=== PATIENT | female | born 1945 | race Caucasian/White ===

== ENCOUNTER 2018-02-19 06:39 | Inpatient (IN) ==
[2018-02-19] MEDS ORDERED: CeFAZolin Syr 2,000MG/20 ML 2,000 MG/20 ML SYRINGE IVPB ONE (07:03)
[2018-02-19] MEDS ORDERED: Albuterol 2.5 MG/3 ML NEBULIZER IH ONE (07:03)
[2018-02-19] MEDS ORDERED: Ringers Solution, Lactated 1,000 ML IVC SCH (07:15)
--- NOTE | 2018-02-19 07:31 | Anesthesia Evaluation PreOp ---
Date of Encounter: 02/19/18 Time of Encounter: 07:28 - Past History Planned Operation: Left Lower Extremity Femoral/Tibial Endarterectomy Cardiac History: [place] (2010), HTN, Hyperlipidemia (y7), Cardiac Stent (stent x 1 in 2009), Other (H/O PE) Pulmonary History: Former smoker (quit 20 years), Snore [employer] SPECIALIST History: Denies Any Significant HX Other Medical History: GERD Anesthesia History: No Prior Anesthetic Complications, Past Anesthesia Alcohol Use: occasionally Drug use: none Medications and Allergies Acetaminophen [Tylenol] 1,000 mg PO Q6HR PRN #90 tablet 02/11/18 [Rx] Aspirin [Lo-Dose Aspirin EC] 81 mg PO DAILY 02/11/18 [History] Biotin 5,000 mcg PO DAILY 02/11/18 [History] Gemfibrozil [Lopid] 600 mg PO BID 02/11/18 [History] Losartan Potassium [Cozaar] 100 mg PO DAILY 02/11/18 [History] [place]-3/Dha/Epa/Fish Oil [Fish Oil 500 mg Softgel] 1 each PO TID 02/11/18 [ History] Tobramycin/Dexamethasone [Tobradex Eye Ointment] 3.5 gm OP TID 02/11/18 [History ] Trazodone HCl 100 mg PO DAILY 02/11/18 [History] 3 Allergy/AdvReac Type Severity Reaction Status Date / Time Sulfa (Sulfonamide Allergy Nausea Verified 07/23/17 09:04 Antibiotics) [id number]-Gdv Reductase AdvReac Muscle Pain Verified 02/11/18 10:07 Inhibitor [Statins] - Meds/Allergy Pre-op Review Medications Reviewed: Yes Allergies Reviewed: Yes Beta Blockers on Current Med List: No Anesthesia Results - Labs Laboratory Tests 08/09/15 02/05/18 02/05/18 13:08 10:09 10:09 WBC 5.0 Hgb 11.7 Hct 34.5 L Plt Count 284 PT 12.0 INR 1.1 APTT 36.4 H Sodium Potassium BUN POC Creatinine 0.70 02/05/18 10:09 WBC Hgb Hct Plt Count PT INR APTT Sodium 138 Potassium 4.4 BUN 20 POC Creatinine - Imaging EKG: report reviewed (02/05/2018 SINUS RHYTHM WITH SINUS ARRHYTHMIA) Additional studies: 07/23/2017 Stress Impression: Pharmacologic stress ECG is non-diagnostic for ischemia due to submaximal HR and baseline ST-T changes. Gated EF > 70%. Perfusion imaging was negative for ischemia or infarct. Anesthesia Exam O2 Sat Height 1.68 m Height 1.68 m Height 1.68 m Weight 79.832 kg Weight 79.832 kg Weight 79.832 kg O2 Sat by Pulse Oximetry 98 Vital Signs Temp Pulse Resp BP Pulse Ox 98.0 F 58 18 158/72 98 02/19/18 07:02 02/19/18 07:02 02/19/18 07:02 02/19/18 07:02 02/19/18 07:02 Height: 5'6'' Weight: 176 lbs NPO (# of Hours): 8 Pain Scale: 0 Pain Scale Used: Numeric (1 - 10) - HEENT Pupil (Motor): EOMI Mallampati: II Teeth: Normal Oral Opening: Greater than 3 - [employer]AL RESEARCH SPECIALIST LOC: Oriented [employer]EARCH SPECIALIST Motor: Normal RUE, Normal LUE, Normal RLE, Normal LLE, Normal Face [employer] SPECIALIST Sensory: Normal: RUE, LUE, RLE, LLE, Face - Cardiac Rhythm: Regular Murmur: None - Pulmonary Breath Sounds: bilateral Clear Respiratory Effort: Symmetrical Anesthesia Assess/Plan ASA Score: 3 Modified Moira Scale for Level of Consciousness: Cooperative, oriented, and tranquil Anesthetic Plan: General Monitoring Plan: Standard Monitors Recovery Plan: PACU
--- NOTE | 2018-02-19 07:32 | History & Physical Report ---
Date of Encounter: 02/19/18 Time of Encounter: 07:30 24 Hour HP Update - Instructions Instructions: If the History and Physical is less than 30 days old and was completed prior to A.M. admission and or procedure and has NOT been updated on calendar day of procedure please complete this update prior to performing procedure. - Update Patient reports changes in Medical Condition: No Changes in examination, assessment, or condition: No Changes in Medication: No Preop tests/diagnostics Reviewed: Yes Surgery Remains Indicated: Yes Consent for Planned Operative Procedure(s) Verified: Yes - Pre-Operative Checklist Preoperative Checklist Indicated: Yes Prophylactic Antibiotic Ordered: Yes (vancomycin due to MRSA risk) Home Medications Include Beta Willi: No Beta Willi Taken Today (Day of Surgery): No Beta Willi Taken Yesterday (Day Prior to Surgery): No Is VTE Prophylaxis Indicated?: Yes
[2018-02-19] MEDS ORDERED: *HR* Midazolam HCl 2 MG/2 ML VIAL ONE (07:59)
[2018-02-19] MEDS ORDERED: *HR* FentaNYL (PF) 100 MCG/2 ML VIAL ONE ×2 (07:59→11:05)
[2018-02-19] MEDS ORDERED: Neostigmine Methylsulfate 3 MG/3 ML SYRINGE ONE (07:59)
[2018-02-19] MEDS ORDERED: *HR* Rocuronium Bromide 50 MG/5 ML VIAL ONE (07:59)
[2018-02-19] MEDS ORDERED: Dexamethasone 4 MG/ML VIAL ONE ×2 (07:59→08:00)
[2018-02-19] MEDS ORDERED: *HR* Propofol 200 MG/20 ML VIAL IVP ONE (07:59)
[2018-02-19] MEDS ORDERED: Ondansetron 4 MG/2 ML VIAL ONE (07:59)
[2018-02-19] MEDS ORDERED: Lidocaine -MPF 4% 5 ML AMPUL ONE (07:59)
[2018-02-19] MEDS ORDERED: Lidocaine -MPF 2% 2 ML VIAL ONE (08:00)
[2018-02-19] MEDS ORDERED: Vancomycin 1,000 MG, Sodium Chloride IRRigation 1,000 ML IR ONE (08:50)
[2018-02-19] MEDS ORDERED: Heparin 1,000 UNITS/500 mL 1,000 ML ONE (08:52)
[2018-02-19] MEDS ORDERED: *HR* PHENYLEPHRINE 1,000 MCG/10 ML SYRINGE IVP ONE ×4 (09:15→12:25)
[2018-02-19] MEDS ORDERED: *HR* Promethazine 25 MG/ML VIAL IVP PRN (09:18)
[2018-02-19] MEDS ORDERED: *HR* Meperidine 25 MG/ML SYRINGE IVP PRN (09:18)
[2018-02-19] MEDS ORDERED: Ondansetron 4 MG/2 ML VIAL IVP PRN ×2 (09:18→14:49)
[2018-02-19] MEDS ORDERED: *HR* OxyCODONE Immed Rel 5 MG TABLET PO PRN ×2 (09:18→14:49)
[2018-02-19] MEDS ORDERED: *HR* HYDROmorphone (PF) 1 MG/ML SYRINGE IVP PRN (09:18)
[2018-02-19] MEDS ORDERED: *HR* Labetalol 20 MG/4 ML SYRINGE IVP PRN ×2 (09:18→14:49)
[2018-02-19] MEDS ORDERED: Naloxone 0.4 MG/ML INJ IVP PRN ×2 (09:18→14:49)
[2018-02-19] MEDS ORDERED: Isovue-300 50 ML VIAL IVP ONE ×2 (09:46→11:50)
[2018-02-19] MEDS ORDERED: Heparin 1,000 UNITS/500 mL 500 ML ONE (09:46)
--- NOTE | 2018-02-19 13:21 | Operative Note ---
Date of procedure: 02/19/18 Pre-op diagnosis: Peripheral vascular disease with disabling claudication Post-op diagnosis: same Procedure: 1. Bilateral lower extremity anterior. 2. Right superficial femoral artery 5 x 27 mm and 6 x 37 mm stent placement with post dilatation using 6 mm balloon. 3. Left superficial femoral artery 6 x 37 mm stent placement 4. Left iliofemoral and deep femoral artery endarterectomy with bovine pericardial patch angioplasty. 5. Left anterior tibial and tibial peroneal trunk artery endarterectomy. Complications: None Anesthesia: GETA Surgeon: Vinay Naqvi Was there an printing assistant present: No Estimated blood loss (cc): 50 Specimen: Left lower extremity plaque Condition: stable Disposition: PACU Procedure in Detail: Indications: The patient is a 72-year-old female with a history of coronary artery disease, hypertension, hyperlipidemia and peripheral vascular disease with disabling claudication. He presented underwent bilateral superficial femoral artery stents. Patient presented to clinic with disabling bilateral lower extremity claudication. She underwent angiography which revealed recurrent stenosis of her right superficial femoral artery, left common femoral and deep femoral artery stenosis, left superficial femoral artery stenosis and left tibial stenosis. Revascularization to reduce her symptoms was recommended. Procedure: The patient was identified in the prep and very. The risks, benefits and alternatives were discussed and all questions were answered. The patient was then taken to the operating room and placed in the supine position on the operating table. After the induction of general endotracheal anesthesia was cleaned and draped in normal sterile fashion. An oblique incision was made sharply over the left groin. Hemostasis was obtained via electrocautery. Through a process of blunt, sharp and electrocautery dissection the external iliac artery and common, deep and superficial femoral arteries were dissected circumferentially and surrounded with Vesseloops. A longitudinal incision was then made over the left calf sharply and hemostasis was obtained with electrocautery. Through a process of blunt, sharp and electrocautery dissection the left below-knee popliteal anterior tibial and tibial peroneal trunk arteries were dissected circumferentially internal vessels. Dissection of the tibial vessels required ligation and division of the anterior tibial vein. The vein was dissected and then ligated with 2-0 silk suture and then divided. The patient then received 5000 units of heparin intravenously. Additional heparin was given throughout the case to maintain adequate anticoagulation. After waiting adequate time for the heparin to circulate, the left iliac and femoral vessels were occluded by applying tension to the Vesseloops. A longitudinal arteriotomy was made in the common femoral artery proximally was extended distally as well. Extensive nearly occlusive calcified plaque was noted within the lumen. Using a dental freer an iliofemoral and deep femoral endarterectomy was performed. The plaque was completely excised from the external iliac, common femoral and origin of the deep femoral artery. The specimen was then sent to pathology. Release of the Vesseloops revealed significant retrograde antegrade flow. A 6-[place] sheath was advanced over wire into the aorta via the left femoral arteriotomy. A guiding catheter was used to advance the wire into the right superficial femoral artery and then into the popliteal artery through the stenosis. The short 6-[place] sheath was exchanged for a long 6-[place] sheath. The sheath was flushed with heparinized saline. A right lower extremity angiogram was performed. This revealed 2 segmental stenotic segments within the right superficial femoral artery stents. Predilation with a 5 x 100 mm balloon was then performed. The balloon was removed from the wire and a 5 x 27 mm stent was placed across the distal left superficial femoral artery stenosis. The stent was deployed. The balloon was removed and a 6 x 37 mm stent was then advanced over the more proximal lesion. The stent was deployed. Postdilatation of the 5 x 27 mm stent was then performed with a 6 mm balloon. A completion angiogram revealed no residual stenosis in the right lower extremity. The wire and sheath were removed. A short 6-[place] sheath and placed an antegrade fashion into the left superficial femoral artery a guiding catheter was used to advance the wire across the stenotic segment with of the left superficial femoral artery. An antegrade was then performed revealing a significant stenosis in the left distal superficial femoral artery. A 637 mm stent was then selected. It was advanced over the wire to cross the lesion. The stent was then deployed in the usual fashion. A completion angiogram revealed no hemodynamically significant residual stenosis in the left superficial femoral artery. The lumen was flushed with heparinized saline. The wire and sheath were removed. A bovine pericardial patch was cut to fit the arteriotomy defect in the femoral artery. The patch was sutured in place with running 6-0 Prolene. Bleeding the patch each vessel was flushed. The vessel was then reoccluded. Heparinized saline was infused into the lumen. The arteriotomy patch was completed. Flow was then restored in the femoral vessels. Thrombin and Gelfoam were used to aid in hemostasis. Attention was then turned to the tibial vessels. Tension was applied to the Vesseloops on the popliteal anterior tibial and tibial-peroneal trunk vessels. A transverse arteriotomy was made directly over the trifurcation. Using a dental freer heavily calcified nearly occlusive plaque was excised from the anterior tibial and tibioperoneal trunk vessels. The specimen was sent to pathology. Endpoints were inspected and no elevated flaps were noted. The lumen was flushed with heparinized saline. The arteriotomy was reapproximated with a running 6-0 Prolene in a horizontal fashion. Prior to completing the closure the vessels were flushed and heparinized saline was infused into the lumen. The vessels were reoccluded and the repair was completed. Flow was then restored. Polyphasic signals were noted in the left tibial vessels. In palpable pulse was noted in the left posterior tibial and anterior tibial artery. The wounds were irrigated with antibiotic containing saline. Meticulouswas obtained throughout the wounds with electrocautery. Platelet rich and platelet poor plasma were infused into the wounds. The wounds were reapproximated with layers of 20 and 3-0 Vicryl suture. Skin was reapproximated with 3-0 Monocryl. 0.5% Marcaine anesthetic was infused along the incisions. Sterile dressings were applied and the patient was extubated and taken to the recovery room in stable condition.
--- NOTE | 2018-02-19 13:29 | Discharge Summary ---
Orders not resulted at time of discharge: Pending orders 02/13/18 12:00 Red Blood Cells [BBK] Routine 02/19/18 13:12 Surgical Pathology [PTH] Routine Date of Encounter: 02/19/18 - Discharge Diagnosis (1) Atherosclerosis of [place] arteries of extremities with intermittent claudication, bilateral legs Priority: Primary Status: Chronic (2) Mixed hyperlipidemia Priority: Secondary Status: Chronic (3) Essential hypertension Priority: Secondary Status: Chronic (4) Coronary artery disease Priority: Secondary Status: Chronic Qualifiers: Coronary Disease-Associated Artery/Lesion type: [place] artery [place] vs. transplanted heart: [place] heart Associated angina: without angina Qualified Code(s): I25.10 - Atherosclerotic heart disease of [place] coronary artery without angina pectoris - Hospital Course Hospital course: Ms. Pisano is a 72 year old female - Time Spent with Patient Total time spent providing and/or coordinating discharge services: - Discharge Medications Home Medications: Aspirin [Lo-Dose Aspirin EC] 81 mg PO HS 02/11/18 [History] Biotin 5,000 mcg PO DAILY 02/11/18 [History] Gemfibrozil [Lopid] 600 mg PO BID 02/11/18 [History] Losartan Potassium [Cozaar] 100 mg PO DAILY 02/11/18 [History] [place]-3/Dha/Epa/Fish Oil [Fish Oil 500 mg Softgel] 1 cap PO BID 02/11/18 [ History] Trazodone HCl 100 mg PO HS 02/11/18 [History] Cetirizine HCl [Zyrtec] 10 mg PO DAILY 02/19/18 [History] Clopidogrel [Plavix] 75 mg PO DAILY #30 tablet 02/19/18 [Rx] OxyCODONE/APAP 5/325 [Percocet 5/325 MG] 1 each PO Q6HR PRN 7 Days #25 tablet [Rx] Vitamin E 1,000 unit PO DAILY 02/19/18 [History] Allergies/Adverse Reactions: 3 Allergy/AdvReac Type Severity Reaction Status Date / Time Myevawz-Fhy-Miq Reductase AdvReac Muscle Pain Verified 02/19/18 07:33 Inhibitor [Statins] Sulfa (Sulfonamide AdvReac Nausea Verified 02/19/18 07:33 Antibiotics) Primary care physician: Clint Murphy DO Procedure(s) Performed: 1. Bilateral lower extremity angiogram. 2. Right superficial femoral artery 5 x 27 mm and 6 x 37 mm stent placement with post dilatation using 6 mm balloon. 3. Left superficial femoral artery 6 x 37 mm stent placement 4. Left iliofemoral and deep femoral artery endarterectomy with bovine pericardial patch angioplasty. 5. Left anterior tibial and tibial peroneal trunk artery endarterectomy. Discharging clinician: Vinay Naqvi - Patient Status Disposition: Home, Self-Care Condition: Good Functional capacity at discharge: independent ambulation Overall status at discharge: patient is back to baseline - Discharge Instructions Follow Up With: Clint Murphy DO [Primary Care Provider] - 02/25/18 9:30 am Vinay Naqvi MD [Partnered Physician] - 03/30/18 1:20 pm Additional Instructions: May remove bandages and shower on 02/21/2018. Wash wounds gently and pat to dry. Applied dry gauze to wounds daily for 7 days. No tub baths or swimming until 03/08/2018. Call Dr. Naqvi at [phone] with questions or concerns. - Diet and Activity Activity: increase activity as tolerated Diet: advance to your usual diet, low fat, low cholesterol
--- NOTE | 2018-02-19 13:37 | Anesthesia Evaluation Post Op ---
Date of Encounter: 02/19/18 Time of Encounter: 13:36 - Vital Signs Vital Signs: Vital Signs/O2 Sat, Most Current Temp Pulse Resp BP Pulse Ox 98.0 F 58 18 158/72 98 02/19/18 07:02 02/19/18 07:02 02/19/18 07:02 02/19/18 07:02 02/19/18 07:02 - Lungs Lungs: Clear Ascult./Percussion - Airway Airway: Non-obstructed - Cardiovascular Regular Rate - Mental Status Mental Status: Asleep with brisk response to light stimulation - Pain Pain Scale: 2 Pain Scale used: Numeric (1 - 10) - Nausea Vomiting Nausea Vomiting: Not Present - Hydration Hydration: Ice chips, Gautam catheter - Discharge PostOp Status: Transfer Patient to floor
[2018-02-19] MEDS ORDERED: 0.9 % Sodium Chloride 1,000 ML IVC SCH (14:49)
[2018-02-19] MEDS ORDERED: OXYCODONE Oral CONC 10 MG/0.5 ML ORAL.SYG SL PRN ×2 (14:49)
[2018-02-19] MEDS ORDERED: *HR* HYDROcodone/Acet 5/325 mg TABLET PO PRN (14:49)
[2018-02-19] MEDS ORDERED: Acetaminophen 325 MG TABLET PO PRN (14:49)
[2018-02-19] MEDS ORDERED: Lacri-Lube 3.5 GM TUBE BOTH EYES SCH (14:57)
[2018-02-19] MEDS: *HR* Metoprolol 5 MG/5 ML VIAL IVP SCH ×2 (18:29→23:18)
[2018-02-19] MEDS: Artificial Tears SOLN 15 ML BOTTLE LEFT EYE SCH ×2 (18:29→20:03)
[2018-02-19] MEDS ORDERED: Vancomycin 0 MG in D5% in Water 250 ML IVPB ONE (20:00)
[2018-02-19] MEDS ORDERED: traZODone 50 MG TABLET PO SCH (21:00)
[2018-02-19] MEDS ORDERED: Aspirin Enteric Coated 81 MG Tablet PO SCH (21:00)
[2018-02-19] MEDS ORDERED: NON-FORMULARY MEDICATION 1 EACH EACH (Omega-3/Dha/Epa/Fish Oil [Fish Oil 500 Mg Softgel] 1 PO SCH (21:00)
[2018-02-20] MEDS: *HR* Metoprolol 5 MG/5 ML VIAL IVP SCH ×2 (05:36→12:21)
[2018-02-20] MEDS ORDERED: *HR* Heparin 5,000 UNIT/ML VIAL SQ SCH ×2 (06:00)
[2018-02-20 06:19] LABS: Basophils % 0.1 %; Hematocrit 32.6 % (35.3-44.9); Hemoglobin 11.3 g/dL (11.5-15.4); Immature Granulocytes % 0.5 % (0-4); Lymphocytes % 11.8 %; Mean Corpuscular HGB Conc 34.7 g/dL (31.6-35.5); Mean Corpuscular Hemoglobin 29.7 pg (28.0-33.3); Mean Corpuscular Volume 85.6 fL (83.0-100.0); Mean Platelet Volume 10.5 fL (9.4-12.4); Monocytes # 0.8 K/mcL (0.0-1.3); Monocytes % 10.2 %; Neutrophils # 6.4 K/mcL (1.6-8.9); Platelet Count 240 K/mcL (140-400); Red Blood Count 3.81 M/mcL (3.82-4.97); Segmented Neutrophils % 77.4 %
[2018-02-20 06:36] LABS: BUN/Creatinine Ratio 20 (6-26); Blood Urea Nitrogen 13 mg/dL (8-23); Calcium 8.8 mg/dL (8.6-10.3); Carbon Dioxide 25 mEq/L (23-29); Chloride 107 mEq/L (98-107); Glucose 102 mg/dL (70-105); Osmolality,Calculated 288 (280-300); Potassium 4.1 mEq/L (3.5-5.1); Sodium 139 mEq/L (136-145); eGFR For African Americans > 60 (> 60); eGFR For Non-African Americans > 60 (> 60)
[2018-02-20] MEDS: Artificial Tears SOLN 15 ML BOTTLE LEFT EYE SCH ×2 (08:05→12:21)
[2018-02-20] MEDS ORDERED: Loratadine 10 MG TABLET PO SCH (09:00)
[2018-02-20] MEDS ORDERED: BIOTIN 5000 MCG PO SCH (09:00)
[2018-02-20 11:22] VITALS: BP 149/66
--- NOTE | 2018-02-20 11:56 | Vascular/[facility] Progress Note ---
Date of Encounter: 02/20/18 Time of Encounter: 08:00 - Subjective Interval history: POD#1 s/p bilateral SFA stent placement, left femoral and tibial endarterectomy. Doing well. Complaining of mild incisional discomfort left groin. Tolerated breakfast. Plans to walk later in the AM. Vital Signs, Last 4 Hours Temp Pulse Resp BP Pulse Ox 02/20/18 11:17 97.9 F 56 19 149/66 98 - Physical Examination Cardiac: Present: Reg Rate and Rhythm Lungs: Present: Normal Breath Sounds Vascular: Present: Pulse, normal (Palpable DP, PT pulses bilaterally. ) Skin: Present: Wound/ulcer(s) (Wounds intact with dressing in place. No hematoma. no signs or symptoms of infection) - VTE Documentation of Mechanical Device: Intermittent pneumatic compression device Results 02/20/18 05:31 02/20/18 05:31 Lab Results, Last 24 hours 02/20/18 02/20/18 05:31 05:31 WBC 8.3 Hgb 11.3 L Hct 32.6 L Plt Count 240 Sodium 139 Potassium 4.1 Chloride 107 Carbon Dioxide 25 BUN 13 Creatinine 0.65 Glucose 102 Calcium 8.8 Consult Discharge Plan - Plan Instructions: Remote Superficial Femoral Artery Endarterectomy (DC) Additional Instructions: May remove bandages and shower on 02/21/2018. Wash wounds gently and pat to dry. Applied dry gauze to wounds daily for 7 days. No tub baths or swimming until 03/08/2018. Call Dr. Naqvi at [phone] with questions or concerns. Referrals: Clint Murphy DO [Primary Care Provider] - 02/25/18 9:30 am Vinay Naqvi MD [Partnered Physician] - 03/30/18 1:20 pm
== END 2018-02-20 13:25 | disposition home or self-care (01) | DRG 254 ==
LOC: SAMDAY 06:39 → 2NNU 14:27
PROVIDERS: ADMIT Surgery; ATTEND Surgery

== ENCOUNTER 2020-06-26 07:17 | Inpatient (IN) ==
[2020-06-26] MEDS ORDERED: Insulin Human Regular 100 UNIT in 0.9 % Sodium Chloride 100 ML IV PRN (07:45)
[2020-06-26] MEDS ORDERED: Dextrose 50 % in Water (Vial) 30 ML, Sodium Bicarbonate 20 MEQ, Potassium Chloride 15 M... TH ONE (07:45)
[2020-06-26] MEDS ORDERED: Norepinephrine 4 MG in 0.9 % Sodium Chloride 250 ML IVC PRN (07:45)
[2020-06-26] MEDS ORDERED: Heparin 1,000 UNITS/500 mL 500 ML ONE (07:51)
[2020-06-26] MEDS ORDERED: ISOVUE-370 200 ML INFUS..BTL ONE (07:51)
[2020-06-26] MEDS ORDERED: Nitroglycerin 1,000 MCG/10 ML VIAL IV ONE (07:51)
[2020-06-26] MEDS ORDERED: *HR* Heparin 10,000 UNIT/10 ML VIAL ONE (07:51)
[2020-06-26] MEDS ORDERED: 0.9 % Sodium Chloride 1,000 ML IVC SCH (08:00)
[2020-06-26] MEDS ORDERED: *HR* Midazolam HCl 2 MG/2 ML VIAL ONE (09:08)
[2020-06-26] MEDS ORDERED: *HR* FentaNYL (PF) 100 MCG/2 ML VIAL ONE (09:08)
[2020-06-26] MEDS ORDERED: Metoprolol XL (24 HR) Succ 25 MG TAB.ER.24H PO ONE (17:00)
[2020-06-26 17:06] LABS: Basophils % 0.7 %; Eosinophils # 0.1 K/mcL (0.0-0.6); Eosinophils % 1.4 %; Estimated Average Glucose 94 mg/dl; Hematocrit 34.1 % (35.3-44.9); Hemoglobin 10.7 g/dL (11.5-15.4); Immature Granulocytes % 0.5 % (0-4); Lymphocytes # 1.1 K/mcL (0.6-4.6); Lymphocytes % 26.5 %; Mean Corpuscular HGB Conc 31.4 g/dL (31.6-35.5); Mean Corpuscular Hemoglobin 25.4 pg (28.0-33.3); Mean Platelet Volume 10.4 fL (9.4-12.4); Monocytes # 0.6 K/mcL (0.0-1.3); Monocytes % 14.5 %; Neutrophils # 2.4 K/mcL (1.6-8.9); Platelet Count 283 K/mcL (140-400); Red Blood Count 4.21 M/mcL (3.82-4.97); Red Cell Distribution Width 19.1 % (11.5-14.5); Segmented Neutrophils % 56.4 %; White Blood Count 4.2 K/mcL (4.3-11.1)
[2020-06-26 17:16] LABS: INR 1.1; Prothrombin Time 12.8 Seconds (9.4-12.1)
[2020-06-26 17:23] LABS: BUN/Creatinine Ratio 22 (6-26); Blood Urea Nitrogen 15 mg/dL (8-23); Calcium 9.4 mg/dL (8.6-10.3); Carbon Dioxide 25 mEq/L (23-29); Chloride 105 mEq/L (98-107); Chol/HDL Ratio 5.5 (0-4.9); Cholesterol 224 mg/dL (< 200); Glucose 80 mg/dL (70-105); HDL Cholesterol 41 mg/dL (40-59); LDL Cholesterol,Calculated 141 mg/dL (< 100); Osmolality,Calculated 286 (280-300); Potassium 3.9 mEq/L (3.5-5.1); Sodium 138 mEq/L (136-145); Triglycerides 210 mg/dL (< 150); eGFR For African Americans > 60 (> 60); eGFR For Non-African Americans > 60 (> 60)
[2020-06-26] MEDS: Chlorhexidine Rinse 15 ML MOUTHWASH MM SCH (20:08)
[2020-06-27] MEDS: Chlorhexidine Rinse 15 ML MOUTHWASH MM SCH ×2 (05:33→21:01)
[2020-06-27] MEDS ORDERED: Aspirin 81 MG TAB.CHEW PO ONE (06:00)
[2020-06-27] MEDS ORDERED: NiCARdipine 2.5 MG/10 ML Syringe IVPB ONE ×2 (06:23→09:50)
[2020-06-27] MEDS ORDERED: *HR* FentaNYL (PF) 1,000 MCG/20 ML VIAL ONE (06:32)
[2020-06-27] MEDS ORDERED: *HR* Midazolam HCl 5 MG/5 ML VIAL IVP ONE (06:32)
[2020-06-27] MEDS ORDERED: *HR* Rocuronium Bromide 50 MG/5 ML VIAL ONE (06:34)
[2020-06-27] MEDS ORDERED: *HR* PHENYLEPHRINE 1,000 MCG/10 ML SYRINGE IVP ONE (06:34)
[2020-06-27] MEDS ORDERED: Protamine Sulfate 250 MG/25 ML VIAL IVP ONE (06:37)
[2020-06-27] MEDS ORDERED: Tranexamic Acid 1,000 MG/10 ML VIAL ONE ×2 (06:37→09:20)
[2020-06-27] MEDS ORDERED: Calcium Gluconate 1,000 MG/10 ML VIAL ONE (06:37)
[2020-06-27] MEDS ORDERED: Papaverine 60 MG/2 ML VIAL IVP ONE (06:40)
[2020-06-27] MEDS ORDERED: EPINEPHrine 1 MG/ML VIAL ONE (06:47)
[2020-06-27] MEDS ORDERED: CeFAZolin Syr 2,000MG/20 ML 2,000 MG/20 ML SYRINGE IVPB ONE (07:00)
[2020-06-27 07:11] LABS: Adenovirus Not Detected (Not Detect); Bordetella Pertussis Not Detected (Not Detect); Chlamydophila pneumoniae Not Detected (Not Detect); Coronavirus 229E Not Detected (Not Detect); Coronavirus HKU1 Not Detected (Not Detect); Coronavirus NL63 Not Detected (Not Detect); Coronavirus OC43 Not Detected (Not Detect); Human Metapneumovirus Not Detected (Not Detect); Human Rhinovirus/Enterovirus Not Detected (Not Detect); Influenza A Subtype 2009 H1 Not Detected (Not Detect); Influenza B Not Detected (Not Detect); Mycoplasma pneumoniae Not Detected (Not Detect); Parainfluenza Virus 1 Not Detected (Not Detect); Parainfluenza Virus 2 Not Detected (Not Detect); Parainfluenza Virus 3 Not Detected (Not Detect); Parainfluenza Virus 4 Not Detected (Not Detect); Respiratory Syncytial Virus Not Detected (Not Detect); SARS-CoV-2 Not Detected (Not Detect)
[2020-06-27] MEDS ORDERED: Dextrose 50 % in Water (Vial) 30 ML, Sodium Bicarbonate 20 MEQ, Lidocaine 1% 5 ML, Insu... TH ONE ×3 (07:45)
[2020-06-27] MEDS ORDERED: Heparin 15,000 UNIT in 0.9 % Sodium Chloride 500 ML IV ONE (07:45)
[2020-06-27 08:21] LABS: ABG Base Excess 0 mEq/L (-2 to 3); ABG Chloride 106 mEq/L (98-107); ABG Glucose 97 mg/dL (60-95); ABG HCO3 27 mEq/L (21-27); ABG Ionized Calcium 1.25 mmol/L (1.15-1.35); ABG Oxygen Saturation 100 % (95-98); ABG PCO2 53 mmHg (35-45); ABG PH 7.32 pH Units (7.32-7.45); ABG PO2 288 mmHg (85-104); ABG TCO2 29 mEq/L (20-26)
[2020-06-27 09:13] LABS: ABG Base Excess -2 mEq/L (-2 to 3); ABG Chloride 107 mEq/L (98-107); ABG Glucose 124 mg/dL (60-95); ABG HCO3 22 mEq/L (21-27); ABG Ionized Calcium 1.13 mmol/L (1.15-1.35); ABG Oxygen Saturation 100 % (95-98); ABG PCO2 34 mmHg (35-45); ABG PH 7.42 pH Units (7.32-7.45); ABG PO2 171 mmHg (85-104); ABG TCO2 23 mEq/L (20-26)
[2020-06-27 09:51] LABS: ABG Base Excess 4 mEq/L (-2 to 3); ABG Chloride 100 mEq/L (98-107); ABG Glucose 181 mg/dL (60-95); ABG HCO3 29 mEq/L (21-27); ABG Ionized Calcium 0.98 mmol/L (1.15-1.35); ABG Oxygen Saturation 100 % (95-98); ABG PCO2 42 mmHg (35-45); ABG PH 7.44 pH Units (7.32-7.45); ABG PO2 529 mmHg (85-104); ABG TCO2 30 mEq/L (20-26)
[2020-06-27] MEDS ORDERED: *HR* Phenylephrine 10 MG/ML VIAL IVC ONE (10:10)
[2020-06-27] MEDS ORDERED: Mannitol 25% vial 12.5 GM/50 ML VIAL IVPB ONE (10:10)
[2020-06-27] MEDS ORDERED: *HR* Magnesium Sulfate 2 GM/50 ML PIGGYBACK IVPB ONE (10:10)
[2020-06-27] MEDS ORDERED: Heparin 1,000 UNITS/500 mL IV.SOLN IVC ONE (10:10)
[2020-06-27] MEDS ORDERED: Lidocaine 2% Syringe 100 MG/5 ML IVP ONE (10:10)
[2020-06-27] MEDS ORDERED: D5% in Water 250 ML IV BAG IV ONE (10:10)
[2020-06-27] MEDS ORDERED: *HR* Heparin 10,000 UNIT/10 ML VIAL IR ONE (10:10)
[2020-06-27] MEDS ORDERED: Tranexamic Acid 1,000 MG/10 ML VIAL IR ONE (10:10)
[2020-06-27] MEDS ORDERED: Albumin Human 25% 25 GM/100 ML IV.SOLN IVPB ONE (10:10)
[2020-06-27] MEDS ORDERED: Insulin Regular, Human 100 UNIT/ML IV PRN (11:05)
[2020-06-27] MEDS ORDERED: *HR* Dextrose 50 % in Water (Syg) 50 ML SYRINGE ONE (11:05)
[2020-06-27] MEDS ORDERED: *HR* Dextrose 50 % in Water (Vial) 50 ML VIAL IVP PRN (11:05)
[2020-06-27] MEDS ORDERED: Potassium Chloride 40 MEQ/200 ML BAG IVPB PRN (11:05)
[2020-06-27 11:07] LABS: ABG Base Excess 0 mEq/L (-2 to 3); ABG Chloride 102 mEq/L (98-107); ABG Glucose 82 mg/dL (60-95); ABG HCO3 25 mEq/L (21-27); ABG Ionized Calcium 1.45 mmol/L (1.15-1.35); ABG Oxygen Saturation 100 % (95-98); ABG PCO2 38 mmHg (35-45); ABG PH 7.42 pH Units (7.32-7.45); ABG PO2 167 mmHg (85-104); ABG TCO2 26 mEq/L (20-26)
[2020-06-27] MEDS ORDERED: Calcium Gluconate 1gm/50mL 1 GM/50 ML BAG IVPB PRN (11:08)
[2020-06-27] MEDS ORDERED: Naloxone 0.4 MG/ML INJ IVP PRN (11:08)
[2020-06-27] MEDS ORDERED: Ondansetron 4 MG/2 ML VIAL IVP PRN (11:08)
[2020-06-27] MEDS ORDERED: Albumin Human 5% 12.5 GM/250 ML IV.SOLN IVPB PRN (11:08)
[2020-06-27] MEDS ORDERED: Acetaminophen 325 MG TABLET PO PRN (11:08)
[2020-06-27] MEDS ORDERED: Acetaminophen 650 MG RECTAL SUPP RC PRN (11:08)
[2020-06-27] MEDS ORDERED: 0.9 % Sodium Chloride w KCl 20 MEQ/1,000 ML MLS IVC SCH (11:15)
[2020-06-27] MEDS ORDERED: Insulin Human Regular 100 UNIT in 0.9 % Sodium Chloride 100 ML IVC SCH (11:15)
[2020-06-27] MEDS ORDERED: niCARdipine 20 MG/200 ML MLS IVC ONE (11:28)
[2020-06-27] MEDS ORDERED: Albumin Human 5% 12.5 GM/250 ML IV.SOLN ONE (11:28)
[2020-06-27] MEDS: *HR* FentaNYL (PF) 100 MCG/2 ML VIAL IVP PRN ×4 (12:00→21:33)
[2020-06-27] MEDS: niCARdipine 20 MG/200 ML MLS IVC SCH ×6 (12:00→22:18)
[2020-06-27 12:21] LABS: ABG Base Excess 4 mEq/L (-2 to 3); ABG HCO3 26 mEq/L (21-27); ABG Oxygen Saturation 99 % (95-98); ABG PCO2 30 mmHg (35-45); ABG PH 7.54 pH Units (7.32-7.45); ABG PO2 114 mmHg (85-104); ABG TCO2 27 mEq/L (20-26); Blood Gas Modality ASSIST CONTROL; Blood Gas VT 600 cc
[2020-06-27 12:24] LABS: Basophils % 0.2 %; Eosinophils # 0.1 K/mcL (0.0-0.6); Eosinophils % 0.9 %; Hematocrit 37.4 % (35.3-44.9); Immature Granulocytes % 0.8 % (0-4); Lymphocytes # 2.2 K/mcL (0.6-4.6); Lymphocytes % 13.5 %; Mean Corpuscular HGB Conc 33.7 g/dL (31.6-35.5); Mean Corpuscular Hemoglobin 26.6 pg (28.0-33.3); Mean Corpuscular Volume 79.1 fL (83.0-100.0); Mean Platelet Volume 9.4 fL (9.4-12.4); Monocytes # 1.7 K/mcL (0.0-1.3); Monocytes % 10.3 %; Platelet Count 154 K/mcL (140-400); Red Blood Count 4.73 M/mcL (3.82-4.97); Segmented Neutrophils % 74.3 %
[2020-06-27 12:26] LABS: Hemoglobin 12.6 g/dL (11.5-15.4); White Blood Count 16.1 K/mcL (4.3-11.1)
[2020-06-27 12:34] LABS: INR 1.3; Prothrombin Time 14.6 Seconds (9.4-12.1)
[2020-06-27 12:36] LABS: Activated Partial Thrombo Time 33.3 Seconds (26.0-36.0)
[2020-06-27] MEDS: Metoclopramide 10 MG/2 ML VIAL IVP SCH ×3 (12:40→23:59)
[2020-06-27 12:41] LABS: BUN/Creatinine Ratio 22 (6-26); Blood Urea Nitrogen 14 mg/dL (8-23); Calcium 9.6 mg/dL (8.6-10.3); Carbon Dioxide 24 mEq/L (23-29); Chloride 105 mEq/L (98-107); Glucose 128 mg/dL (70-105); Magnesium 2.5 mg/dL (1.6-2.6); Osmolality,Calculated 290 (280-300); Potassium 3.7 mEq/L (3.5-5.1); Sodium 139 mEq/L (136-145); eGFR For African Americans > 60 (> 60); eGFR For Non-African Americans > 60 (> 60)
[2020-06-27] MEDS ORDERED: Amiodarone Premix 150 MG/100 ML BAG IVPB ONE ×2 (12:57→13:01)
[2020-06-27] MEDS ORDERED: Amiodarone Premix 360 MG/200 ML BAG IVC ONE (13:01)
[2020-06-27] MEDS: *HR* OxyCODONE/APAP 5/325 TABLET PO PRN ×2 (13:52→19:47)
[2020-06-27] MEDS: Pantoprazole 40 MG VIAL IVP SCH (13:52)
[2020-06-27] MEDS: CeFAZolin 2 GM/120 ML BAG IVPB SCH ×2 (15:57→23:59)
[2020-06-27 16:06] LABS: ABG Base Excess -2 mEq/L (-2 to 3); ABG HCO3 22 mEq/L (21-27); ABG Oxygen Saturation 97 % (95-98); ABG PCO2 33 mmHg (35-45); ABG PH 7.44 pH Units (7.32-7.45); ABG PO2 91 mmHg (85-104); ABG TCO2 23 mEq/L (20-26); Blood Gas Modality ASSIST CONTROL; Blood Gas VT 600 cc
[2020-06-27 17:58] LABS: ABG Base Excess -2 mEq/L (-2 to 3); ABG HCO3 23 mEq/L (21-27); ABG Oxygen Saturation 97 % (95-98); ABG PCO2 38 mmHg (35-45); ABG PH 7.39 pH Units (7.32-7.45); ABG PO2 87 mmHg (85-104); ABG TCO2 24 mEq/L (20-26); Blood Gas Modality CPAP/PS; Blood Gas Pressure Support 5 cm H2O
[2020-06-27] MEDS: Amiodarone Premix 360 MG/200 ML BAG IVC SCH (18:50)
[2020-06-27 20:09] LABS: ABG Base Excess -3 mEq/L (-2 to 3); ABG HCO3 22 mEq/L (21-27); ABG Oxygen Saturation 93 % (95-98); ABG PCO2 38 mmHg (35-45); ABG PH 7.37 pH Units (7.32-7.45); ABG PO2 67 mmHg (85-104); ABG TCO2 23 mEq/L (20-26)
[2020-06-28] MEDS: niCARdipine 20 MG/200 ML MLS IVC SCH ×3 (00:37→07:18)
[2020-06-28] MEDS: *HR* OxyCODONE/APAP 5/325 TABLET PO PRN ×5 (01:09→19:41)
[2020-06-28] MEDS: *HR* FentaNYL (PF) 100 MCG/2 ML VIAL IVP PRN ×6 (03:43→23:20)
[2020-06-28 04:59] LABS: INR 1.2; Prothrombin Time 14.2 Seconds (9.4-12.1)
[2020-06-28 05:00] LABS: Basophils % 0.2 %; Hematocrit 34.1 % (35.3-44.9); Hemoglobin 10.7 g/dL (11.5-15.4); Immature Granulocytes % 0.8 % (0-4); Lymphocytes # 0.7 K/mcL (0.6-4.6); Lymphocytes % 4.4 %; Mean Corpuscular HGB Conc 31.4 g/dL (31.6-35.5); Mean Corpuscular Hemoglobin 26.3 pg (28.0-33.3); Mean Corpuscular Volume 83.8 fL (83.0-100.0); Mean Platelet Volume 10.5 fL (9.4-12.4); Monocytes # 1.3 K/mcL (0.0-1.3); Monocytes % 8.1 %; Neutrophils # 13.7 K/mcL (1.6-8.9); Platelet Count 191 K/mcL (140-400); Red Blood Count 4.07 M/mcL (3.82-4.97); Red Cell Distribution Width 18.2 % (11.5-14.5); Segmented Neutrophils % 86.5 %; White Blood Count 15.8 K/mcL (4.3-11.1)
[2020-06-28 05:02] LABS: Activated Partial Thrombo Time 28.2 Seconds (26.0-36.0)
[2020-06-28 05:12] LABS: BUN/Creatinine Ratio 21 (6-26); Blood Urea Nitrogen 20 mg/dL (8-23); Carbon Dioxide 20 mEq/L (23-29); Chloride 108 mEq/L (98-107); Glucose 161 mg/dL (70-105); Magnesium 1.9 mg/dL (1.6-2.6); Osmolality,Calculated 290 (280-300); Potassium 4.2 mEq/L (3.5-5.1); Sodium 137 mEq/L (136-145); eGFR For African Americans > 60 (> 60); eGFR For Non-African Americans 58 (> 60)
[2020-06-28] MEDS: Metoclopramide 10 MG/2 ML VIAL IVP SCH ×3 (05:43→17:26)
[2020-06-28] MEDS: Norepinephrine 4 MG/254 ML IV.SOLN IVC SCH ×2 (07:56→11:55)
[2020-06-28] MEDS ORDERED: Dextrose Gel 15 GM/37.5 ML TUBE PO PRN ×2 (08:00)
[2020-06-28] MEDS ORDERED: *HR* Dextrose 50 % in Water (Vial) 50 ML VIAL IVP PRN (08:00)
[2020-06-28] MEDS ORDERED: D5% in Water 1,000 ML IVC PRN (08:00)
[2020-06-28] MEDS: Chlorhexidine Rinse 15 ML MOUTHWASH MM SCH ×2 (08:02→21:08)
[2020-06-28] MEDS: Furosemide 20 MG/2 ML VIAL IVP SCH ×2 (08:02→21:09)
[2020-06-28] MEDS: Pantoprazole 40 MG VIAL IVP SCH (08:02)
[2020-06-28] MEDS: Aspirin Enteric Coated 81 MG Tablet PO SCH (08:02)
[2020-06-28] MEDS: Insulin Human Regular 100 UNIT in 0.9 % Sodium Chloride 100 ML IVC SCH ×2 (08:10→12:52)
[2020-06-28] MEDS: *HR* Heparin 5,000 UNIT/ML VIAL SQ SCH ×2 (09:30→17:26)
[2020-06-28] MEDS: Amiodarone Premix 360 MG/200 ML BAG IVC SCH ×2 (09:32→21:25)
[2020-06-28] MEDS: Insulin LISPRO 300 UNITS/3 ML VIAL SQ SCH ×2 (11:55→16:53)
[2020-06-29] MEDS: *HR* OxyCODONE/APAP 5/325 TABLET PO PRN ×5 (00:10→20:09)
[2020-06-29] MEDS: Metoclopramide 10 MG/2 ML VIAL IVP SCH ×3 (00:10→11:55)
[2020-06-29] MEDS: *HR* FentaNYL (PF) 100 MCG/2 ML VIAL IVP PRN ×2 (02:31→04:54)
[2020-06-29] MEDS: Insulin LISPRO 300 UNITS/3 ML VIAL SQ SCH ×5 (05:06→20:21)
[2020-06-29 05:25] LABS: BUN/Creatinine Ratio 31 (6-26); Blood Urea Nitrogen 27 mg/dL (8-23); Calcium 7.8 mg/dL (8.6-10.3); Carbon Dioxide 20 mEq/L (23-29); Chloride 107 mEq/L (98-107); Glucose 151 mg/dL (70-105); Osmolality,Calculated 290 (280-300); Potassium 4.1 mEq/L (3.5-5.1); Sodium 136 mEq/L (136-145); eGFR For African Americans > 60 (> 60); eGFR For Non-African Americans > 60 (> 60)
[2020-06-29 05:26] LABS: Basophils % 0.2 %; Hematocrit 32.7 % (35.3-44.9); Hemoglobin 10.3 g/dL (11.5-15.4); Immature Platelets 8.4 % (1.1-6.1); Lymphocytes # 1.5 K/mcL (0.6-4.6); Lymphocytes % 5.9 %; Mean Corpuscular HGB Conc 31.5 g/dL (31.6-35.5); Mean Corpuscular Hemoglobin 26.8 pg (28.0-33.3); Mean Corpuscular Volume 84.9 fL (83.0-100.0); Mean Platelet Volume 10.9 fL (9.4-12.4); Monocytes # 2.7 K/mcL (0.0-1.3); Monocytes % 10.8 %; Neutrophils # 20.2 K/mcL (1.6-8.9); Platelet Count 194 K/mcL (140-400); Red Blood Count 3.85 M/mcL (3.82-4.97); Red Cell Distribution Width 19.4 % (11.5-14.5); Segmented Neutrophils % 82.1 %; White Blood Count 24.6 K/mcL (4.3-11.1)
[2020-06-29 05:51] LABS: Basophils # 0.1 K/mcL (0.0-0.2); Platelet Estimate Normal (Normal)
[2020-06-29] MEDS: *HR* Heparin 5,000 UNIT/ML VIAL SQ SCH ×2 (06:17→17:23)
[2020-06-29] MEDS: niCARdipine 20 MG/200 ML MLS IVC SCH ×5 (06:17→15:39)
[2020-06-29] MEDS: Aspirin Enteric Coated 81 MG Tablet PO SCH (09:12)
[2020-06-29] MEDS: Furosemide 40 MG/4 ML VIAL IVP SCH ×2 (09:13→20:20)
[2020-06-29] MEDS: Chlorhexidine Rinse 15 ML MOUTHWASH MM SCH ×2 (09:14→20:19)
[2020-06-29] MEDS: Norepinephrine 4 MG/254 ML IV.SOLN IVC SCH (11:31)
[2020-06-29] MEDS: Insulin Human Regular 100 UNIT in 0.9 % Sodium Chloride 100 ML IVC SCH (11:57)
[2020-06-29] MEDS: Amiodarone Premix 360 MG/200 ML BAG IVC SCH (13:30)
[2020-06-29 22:20] LABS: BUN/Creatinine Ratio 34 (6-26); Blood Urea Nitrogen 26 mg/dL (8-23); Calcium 8.2 mg/dL (8.6-10.3); Carbon Dioxide 25 mEq/L (23-29); Chloride 100 mEq/L (98-107); Glucose 120 mg/dL (70-105); Osmolality,Calculated 284 (280-300); Potassium 3.5 mEq/L (3.5-5.1); Sodium 134 mEq/L (136-145); eGFR For African Americans > 60 (> 60); eGFR For Non-African Americans > 60 (> 60)
[2020-06-30] MEDS: *HR* OxyCODONE/APAP 5/325 TABLET PO PRN ×4 (02:22→20:59)
[2020-06-30] MEDS: niCARdipine 20 MG/200 ML MLS IVC SCH ×4 (03:56→08:27)
[2020-06-30] MEDS: Amiodarone Premix 360 MG/200 ML BAG IVC SCH (03:56)
[2020-06-30 04:31] LABS: Basophils % 0.2 %; Eosinophils % 0.2 %; Hematocrit 31.5 % (35.3-44.9); Hemoglobin 10.3 g/dL (11.5-15.4); Immature Granulocytes % 0.7 % (0-4); Lymphocytes # 1.1 K/mcL (0.6-4.6); Mean Corpuscular HGB Conc 32.7 g/dL (31.6-35.5); Mean Corpuscular Hemoglobin 27.6 pg (28.0-33.3); Mean Corpuscular Volume 84.5 fL (83.0-100.0); Mean Platelet Volume 10.9 fL (9.4-12.4); Monocytes # 1.6 K/mcL (0.0-1.3); Neutrophils # 13.1 K/mcL (1.6-8.9); Platelet Count 178 K/mcL (140-400); Red Blood Count 3.73 M/mcL (3.82-4.97); Red Cell Distribution Width 18.6 % (11.5-14.5); Segmented Neutrophils % 81.9 %
[2020-06-30 04:49] LABS: BUN/Creatinine Ratio 33 (6-26); Blood Urea Nitrogen 25 mg/dL (8-23); Calcium 8.5 mg/dL (8.6-10.3); Carbon Dioxide 25 mEq/L (23-29); Chloride 101 mEq/L (98-107); Glucose 121 mg/dL (70-105); Osmolality,Calculated 284 (280-300); Potassium 3.5 mEq/L (3.5-5.1); Sodium 134 mEq/L (136-145); eGFR For African Americans > 60 (> 60); eGFR For Non-African Americans > 60 (> 60)
[2020-06-30] MEDS: *HR* Heparin 5,000 UNIT/ML VIAL SQ SCH ×2 (05:52→16:39)
[2020-06-30] MEDS: Insulin LISPRO 300 UNITS/3 ML VIAL SQ SCH ×4 (08:27→20:43)
[2020-06-30] MEDS: Aspirin Enteric Coated 81 MG Tablet PO SCH (08:27)
[2020-06-30] MEDS: Chlorhexidine Rinse 15 ML MOUTHWASH MM SCH ×2 (08:27→20:43)
[2020-06-30] MEDS: Furosemide 40 MG/4 ML VIAL IVP SCH ×2 (08:28→16:39)
[2020-06-30] MEDS ORDERED: Potassium Chloride Elixir 20 MEQ/15 ML UDC PO SCH (09:00)
[2020-06-30] MEDS ORDERED: *HR* Amiodarone 200 MG TABLET PO SCH (10:00)
[2020-06-30] MEDS: Norepinephrine 4 MG/254 ML IV.SOLN IVC SCH (11:29)
[2020-06-30] MEDS: Insulin Human Regular 100 UNIT in 0.9 % Sodium Chloride 100 ML IVC SCH (11:29)
[2020-06-30] MEDS ORDERED: Ondansetron 4 MG/2 ML VIAL IVP PRN (13:42)
[2020-06-30] MEDS ORDERED: D5% in Water 1,000 ML IVC PRN (13:42)
[2020-06-30] MEDS ORDERED: Insulin Regular, Human 100 UNIT/ML IV PRN (13:42)
[2020-06-30] MEDS ORDERED: Acetaminophen 325 MG TABLET PO PRN (13:42)
[2020-06-30] MEDS ORDERED: Naloxone 0.4 MG/ML INJ IVP PRN (13:42)
[2020-06-30] MEDS ORDERED: Dextrose Gel 15 GM/37.5 ML TUBE PO PRN ×2 (13:42)
[2020-06-30] MEDS ORDERED: *HR* Dextrose 50 % in Water (Vial) 50 ML VIAL IVP PRN (13:42)
[2020-06-30] MEDS ORDERED: Calcium Chloride 1,000 MG in 0.9 % Sodium Chloride 100 ML IVPB ONE (15:42)
[2020-06-30] MEDS: Calcium Gluconate 1gm/50mL 1 GM/50 ML BAG IVPB SCH ×2 (16:40→17:47)
[2020-06-30] MEDS ORDERED: *HR* Metoprolol 5 MG/5 ML VIAL IVP ONE (17:22)
[2020-06-30 20:30] LABS: VBG Ionized Calcium 1.09 mmol/L (1.15-1.35)
[2020-06-30] MEDS: *HR* Amiodarone 200 MG TABLET PO SCH (20:44)
[2020-06-30] MEDS ORDERED: Aspirin Enteric Coated 81 MG Tablet PO SCH (21:00)
[2020-07-01] MEDS ORDERED: *HR* Metoprolol 5 MG/5 ML VIAL IVP ONE ×2 (00:35→05:04)
[2020-07-01] MEDS: *HR* Heparin 5,000 UNIT/ML VIAL SQ SCH ×2 (05:35→19:58)
[2020-07-01] MEDS: *HR* OxyCODONE/APAP 5/325 TABLET PO PRN ×2 (05:47→12:56)
[2020-07-01] MEDS: Insulin LISPRO 300 UNITS/3 ML VIAL SQ SCH ×4 (07:45→20:47)
[2020-07-01] MEDS: Furosemide 40 MG/4 ML VIAL IVP SCH ×2 (08:01→19:58)
[2020-07-01] MEDS: Aspirin Enteric Coated 81 MG Tablet PO SCH (08:02)
[2020-07-01] MEDS: *HR* Amiodarone 200 MG TABLET PO SCH ×2 (08:02→20:51)
[2020-07-01] MEDS: Potassium Chloride Elixir 20 MEQ/15 ML UDC PO SCH (08:03)
[2020-07-01] MEDS: Chlorhexidine Rinse 15 ML MOUTHWASH MM SCH ×2 (08:04→20:50)
[2020-07-01 09:59] LABS: Basophils % 0.3 %; Eosinophils # 0.2 K/mcL (0.0-0.6); Eosinophils % 1.8 %; Hematocrit 35.2 % (35.3-44.9); Hemoglobin 11.2 g/dL (11.5-15.4); Immature Granulocytes % 0.5 % (0-4); Lymphocytes # 0.8 K/mcL (0.6-4.6); Lymphocytes % 8.1 %; Mean Corpuscular HGB Conc 31.8 g/dL (31.6-35.5); Mean Corpuscular Hemoglobin 26.7 pg (28.0-33.3); Mean Corpuscular Volume 83.8 fL (83.0-100.0); Mean Platelet Volume 10.9 fL (9.4-12.4); Monocytes # 0.9 K/mcL (0.0-1.3); Monocytes % 9.4 %; Neutrophils # 7.9 K/mcL (1.6-8.9); Platelet Count 259 K/mcL (140-400); Red Cell Distribution Width 17.8 % (11.5-14.5); Segmented Neutrophils % 79.9 %
[2020-07-01 10:07] LABS: BUN/Creatinine Ratio 33 (6-26); Blood Urea Nitrogen 26 mg/dL (8-23); Calcium 8.7 mg/dL (8.6-10.3); Carbon Dioxide 28 mEq/L (23-29); Chloride 99 mEq/L (98-107); Glucose 120 mg/dL (70-105); Osmolality,Calculated 284 (280-300); Potassium 3.1 mEq/L (3.5-5.1); Sodium 134 mEq/L (136-145); eGFR For African Americans > 60 (> 60); eGFR For Non-African Americans > 60 (> 60)
[2020-07-01] MEDS: traZODone 50 MG TABLET PO SCH (20:54)
[2020-07-02] MEDS: *HR* Heparin 5,000 UNIT/ML VIAL SQ SCH ×2 (05:27→18:50)
[2020-07-02] MEDS: Insulin LISPRO 300 UNITS/3 ML VIAL SQ SCH ×4 (08:33→20:59)
[2020-07-02] MEDS: Aspirin Enteric Coated 81 MG Tablet PO SCH (08:39)
[2020-07-02] MEDS: *HR* Amiodarone 200 MG TABLET PO SCH ×2 (08:39→21:00)
[2020-07-02] MEDS: Chlorhexidine Rinse 15 ML MOUTHWASH MM SCH ×2 (08:40→21:01)
[2020-07-02] MEDS: Potassium Chloride Elixir 20 MEQ/15 ML UDC PO SCH (08:41)
[2020-07-02] MEDS: Furosemide 40 MG/4 ML VIAL IVP SCH (08:41)
[2020-07-02 10:51] LABS: BUN/Creatinine Ratio 38 (6-26); Blood Urea Nitrogen 30 mg/dL (8-23); Calcium 8.4 mg/dL (8.6-10.3); Carbon Dioxide 29 mEq/L (23-29); Chloride 97 mEq/L (98-107); Glucose 132 mg/dL (70-105); Osmolality,Calculated 292 (280-300); Potassium 3.3 mEq/L (3.5-5.1); Sodium 137 mEq/L (136-145); eGFR For African Americans > 60 (> 60); eGFR For Non-African Americans > 60 (> 60)
[2020-07-02] MEDS ORDERED: Potassium Chloride Elixir 20 MEQ/15 ML UDC PO ONE ×2 (11:50→16:00)
[2020-07-02] MEDS: traZODone 50 MG TABLET PO SCH (21:01)
[2020-07-03] MEDS: *HR* Heparin 5,000 UNIT/ML VIAL SQ SCH ×2 (06:01→17:34)
[2020-07-03 06:42] LABS: Hematocrit 36.3 % (35.3-44.9); Hemoglobin 11.7 g/dL (11.5-15.4); Mean Corpuscular HGB Conc 32.2 g/dL (31.6-35.5); Mean Corpuscular Hemoglobin 27.1 pg (28.0-33.3); Mean Corpuscular Volume 84.2 fL (83.0-100.0); Mean Platelet Volume 10.5 fL (9.4-12.4); Platelet Count 334 K/mcL (140-400); Red Blood Count 4.31 M/mcL (3.82-4.97); Red Cell Distribution Width 17.2 % (11.5-14.5); White Blood Count 10.2 K/mcL (4.3-11.1)
[2020-07-03 06:59] LABS: BUN/Creatinine Ratio 36 (6-26); Blood Urea Nitrogen 25 mg/dL (8-23); Carbon Dioxide 28 mEq/L (23-29); Chloride 99 mEq/L (98-107); Glucose 109 mg/dL (70-105); Osmolality,Calculated 285 (280-300); Potassium 3.6 mEq/L (3.5-5.1); Sodium 135 mEq/L (136-145); eGFR For African Americans > 60 (> 60); eGFR For Non-African Americans > 60 (> 60)
[2020-07-03] MEDS: Chlorhexidine Rinse 15 ML MOUTHWASH MM SCH ×2 (07:41→20:11)
[2020-07-03] MEDS: *HR* Amiodarone 200 MG TABLET PO SCH ×2 (07:42→20:12)
[2020-07-03] MEDS: Potassium Chloride Elixir 20 MEQ/15 ML UDC PO SCH (07:43)
[2020-07-03] MEDS: Aspirin Enteric Coated 81 MG Tablet PO SCH (07:43)
[2020-07-03] MEDS: Insulin LISPRO 300 UNITS/3 ML VIAL SQ SCH ×4 (07:51→21:42)
[2020-07-03] MEDS: traZODone 50 MG TABLET PO SCH (20:12)
[2020-07-04 04:06] VITALS: BP 145/66
[2020-07-04] MEDS: *HR* Heparin 5,000 UNIT/ML VIAL SQ SCH (06:08)
[2020-07-04] MEDS: Insulin LISPRO 300 UNITS/3 ML VIAL SQ SCH (07:40)
[2020-07-04] MEDS: *HR* Amiodarone 200 MG TABLET PO SCH (07:45)
[2020-07-04] MEDS: Chlorhexidine Rinse 15 ML MOUTHWASH MM SCH (07:46)
[2020-07-04] MEDS: Aspirin Enteric Coated 81 MG Tablet PO SCH (07:46)
[2020-07-04] MEDS: Potassium Chloride Elixir 20 MEQ/15 ML UDC PO SCH (07:58)
== END 2020-07-04 10:11 | disposition home or self-care (01) | DRG 228 ==
LOC: INVDIALAB 07:17 → 2NNU 10:18 → ICNU 06-27 08:08 → 2NNU 07-01 18:04
PROVIDERS: ADMIT Internal Medicine Cardiovascular Disease; ATTEND Thoracic Surgery (Cardiothoracic Vascular Surgery)

== ENCOUNTER 2021-07-05 06:14 | Inpatient (IN) ==
[2021-07-05] MEDS ORDERED: Heparin 1,000 UNITS/500 mL 500 ML ONE (06:33)
[2021-07-05] MEDS ORDERED: Protamine Sulfate 50 MG/5 ML VIAL IVP ONE (06:33)
[2021-07-05] MEDS ORDERED: Bupivacaine-MPF 0.25% 10 ML VIAL ONE (06:33)
[2021-07-05] MEDS ORDERED: *HR* Propofol 200 MG/20 ML VIAL IVP ONE ×2 (06:34→06:35)
[2021-07-05] MEDS ORDERED: Lidocaine -MPF 2% 5 ML VIAL ONE (06:36)
[2021-07-05] MEDS ORDERED: *HR* Rocuronium Bromide 50 MG/5 ML VIAL ONE ×2 (06:36→08:25)
[2021-07-05] MEDS ORDERED: Ondansetron 4 MG/2 ML VIAL ONE (06:36)
[2021-07-05] MEDS ORDERED: Vancomycin 1,250 MG/262.5 ML IV.SOLN IVPB ONE ×3 (06:42→20:00)
[2021-07-05] MEDS ORDERED: CeFAZolin Syr 2,000MG/20 ML 2,000 MG/20 ML SYRINGE IVPB ONE (06:42)
[2021-07-05] MEDS ORDERED: Ringers Solution, Lactated 1,000 ML IVC SCH (06:45)
[2021-07-05] MEDS ORDERED: *HR* FentaNYL (PF) 100 MCG/2 ML VIAL ONE (06:49)
[2021-07-05] MEDS ORDERED: Ondansetron 4 MG/2 ML VIAL IVP PRN ×3 (07:15→11:20)
[2021-07-05] MEDS ORDERED: *HR* OxyCODONE Immed Rel 5 MG TABLET PO PRN ×2 (07:15→10:35)
[2021-07-05] MEDS ORDERED: *HR* HYDROmorphone PF 0.5 MG/0.5 ML SYRINGE IVP PRN (07:15)
[2021-07-05] MEDS ORDERED: Vancomycin 1,000 MG, Sodium Chloride IRRigation 1,000 ML IR ONE (07:45)
[2021-07-05] MEDS ORDERED: *HR* Heparin 5,000 UNIT/ML VIAL ONE (08:42)
[2021-07-05] MEDS ORDERED: Sugammadex Sodium 200 MG/2 ML VIAL IV ONE (09:46)
[2021-07-05] MEDS ORDERED: *HR* HYDROMORPHONE 2 MG/ML VIAL ONE (09:48)
[2021-07-05] MEDS ORDERED: *HR* Labetalol 20 MG/4 ML SYRINGE IVP PRN ×2 (10:35→11:20)
[2021-07-05] MEDS ORDERED: Naloxone 0.4 MG/ML INJ IVP PRN ×2 (10:35→11:20)
[2021-07-05] MEDS ORDERED: *HR* HYDROcodone/Acet 5/325 mg TABLET PO PRN (10:35)
[2021-07-05] MEDS ORDERED: Acetaminophen 325 MG TABLET PO PRN ×2 (10:35→11:20)
[2021-07-05] MEDS ORDERED: *HR* OxyCODONE Immed Rel 5 MG TABLET ONE (10:40)
[2021-07-05] MEDS ORDERED: 0.9 % Sodium Chloride 1,000 ML IVC SCH ×2 (10:45→11:20)
[2021-07-05] MEDS ORDERED: *HR* Metoprolol 5 MG/5 ML VIAL IVP SCH (12:00)
[2021-07-05] MEDS: *HR* Metoprolol 5 MG/5 ML VIAL IVP SCH ×2 (12:17→17:00)
[2021-07-05] MEDS ORDERED: CeFAZolin 2 GM/120 ML BAG IVPB SCH (14:00)
[2021-07-05] MEDS: CeFAZolin 2 GM/120 ML BAG IVPB SCH (15:28)
[2021-07-05] MEDS: *HR* HYDROcodone/Acet 5/325 mg TABLET PO PRN ×2 (15:30→21:53)
[2021-07-05] MEDS: gemfibroziL 600 MG TABLET PO SCH (17:44)
[2021-07-05] MEDS: *HR* OxyCODONE Immed Rel 5 MG TABLET PO PRN (18:42)
[2021-07-05] MEDS ORDERED: Aspirin Enteric Coated 81 MG Tablet PO SCH (21:00)
[2021-07-05] MEDS ORDERED: traZODone 50 MG TABLET PO SCH (21:00)
[2021-07-06] MEDS: CeFAZolin 2 GM/120 ML BAG IVPB SCH (00:10)
[2021-07-06] MEDS: *HR* Metoprolol 5 MG/5 ML VIAL IVP SCH ×2 (00:16→04:50)
[2021-07-06] MEDS: *HR* HYDROcodone/Acet 5/325 mg TABLET PO PRN (04:49)
[2021-07-06 05:40] LABS: BUN/Creatinine Ratio 19 (6-26); Blood Urea Nitrogen 14 mg/dL (8-23); Calcium 7.9 mg/dL (8.6-10.3); Carbon Dioxide 24 mEq/L (23-29); Chloride 111 mEq/L (98-107); Glucose 102 mg/dL (70-105); Osmolality,Calculated 291 (280-300); Potassium 3.9 mEq/L (3.5-5.1); Sodium 140 mEq/L (136-145); eGFR For African Americans > 60 (> 60); eGFR For Non-African Americans > 60 (> 60)
[2021-07-06] MEDS ORDERED: *HR* Heparin 5,000 UNIT/ML VIAL SQ SCH ×2 (06:00)
[2021-07-06 07:44] VITALS: TEMP 98.3; O2SAT 98
[2021-07-06] MEDS: *HR* OxyCODONE Immed Rel 5 MG TABLET PO PRN (08:10)
[2021-07-06] MEDS: gemfibroziL 600 MG TABLET PO SCH (08:11)
[2021-07-06] MEDS ORDERED: Multivit/Ca/Min/Fe/FA 1 TAB TABLET PO SCH (09:00)
[2021-07-06] MEDS ORDERED: Cholecalciferol (D-3) 1,000 UNIT (25MCG) TABLET PO SCH (09:00)
[2021-07-06] MEDS ORDERED: Ascorbic Acid 500 MG TABLET PO SCH (09:00)
[2021-07-06] MEDS ORDERED: *HR* Ticagrelor 90 MG TABLET PO SCH (09:00)
[2021-07-06 11:39] VITALS: BP 115/95; PULSE 58
== END 2021-07-06 12:09 | disposition home or self-care (01) | DRG 254 ==
LOC: SAMDAY 06:14 → 2NNU 07:37
PROVIDERS: ADMIT Surgery; ATTEND Surgery